=== PATIENT | female | born 1935 | race Caucasian/White ===

== ENCOUNTER 2017-08-08 19:47 | Emergency (ER) | payer MEDICARE ==
[~2017-08-08] VITALS: Ht 162.6 cm; Wt 87.2 kg
[~2017-08-08 19:47] MED LIST: MECL-127 PO; ONDA8TAB9 PO; PANT20TA3; PROC-8; ROSU10TA PO
[2017-08-08 20:12] LABS: CLARITY,URINE CLEAR (Clear); COLOR,URINE STRAW (Yellow); GLUCOSE, URINE NEGATIVE (Neg); KETONES,URINE NEGATIVE (Neg); LEUKOCYTE ESTERASE ,URINE LARGE (Neg); NITRITES, URINE NEGATIVE (Neg); OCCULT BLOOD,URINE LARGE (Neg); PH,URINE 5.5 (4.8-8.0); PROTEIN,URINE NEGATIVE (Neg); UROBILINOGEN,URINE 0.2 E.U/dL (0.2-1.0)
[2017-08-08 20:13] LABS: UA COLLECTION TYPE CLN CATCH MIDSTREAM
[2017-08-08 20:17] LABS: WBC,URINE 30-50 /HPF (0-4)
[2017-08-08 20:18] LABS: BACTERIA,URINE 2+ /HPF (Neg); MUCUS STRANDS NONE SEEN /LPF (Neg); SQUAMOUS EPITHELIAL CELL,UR NONE SEEN /LPF (FEW); TRANSITIONAL EPI CELLS,URINE FEW /HPF
[2017-08-08] MEDS ORDERED: NITR100C6 PO (20:40)
[2017-08-08] MEDS ORDERED: nitrofurantoin macrocrystal 100mg capsule PO ONE (20:40)
[2017-08-08] MEDS ORDERED: phenazopyridine 100mg tablet PO ONE (20:40)
[2017-08-08] MEDS ORDERED: PHEN-824 PO (20:40)
[2017-08-08 21:00] VITALS: BP 133/74
== END 2017-08-08 21:02 | disposition home or self-care (01) ==
LOC: ER 19:48
DX: N39.0 Urinary tract infection, site not specified (principal); R31.9 Hematuria, unspecified; E78.00 Pure hypercholesterolemia, unspecified; K21.9 Gastro-esophageal reflux disease without esophagitis; Z88.0 Allergy status to penicillin; Z88.5 Allergy status to narcotic agent; Z90.49 Acquired absence of other specified parts of digestive tract; Z79.899 Other long term (current) drug therapy
CPT/HCPCS: 81001; 87077; 87088; 87186; 99284

== ENCOUNTER 2017-08-28 01:59 | Emergency (ER) | payer MEDICARE ==
[~2017-08-28] VITALS: Ht 165.1 cm; Wt 85.9 kg
[~2017-08-28 01:59] MED LIST changes: +NITR100C6 PO; +PHEN-824 PO
[2017-08-28 02:05] VITALS: BP 190/80
[2017-08-28] MEDS ORDERED: LORazepam 1 MG tablet PO ONE (02:35)
[2017-08-28 03:17] LABS: CLARITY,URINE CLEAR (Clear); COLOR,URINE YELLOW (Yellow); GLUCOSE, URINE NEGATIVE (Neg); KETONES,URINE NEGATIVE (Neg); LEUKOCYTE ESTERASE ,URINE NEGATIVE (Neg); NITRITES, URINE NEGATIVE (Neg); OCCULT BLOOD,URINE NEGATIVE (Neg); PH,URINE 7.5 (4.8-8.0); PROTEIN,URINE NEGATIVE (Neg); UROBILINOGEN,URINE 0.2 E.U/dL (0.2-1.0)
[2017-08-28 03:20] LABS: UA COLLECTION TYPE NON-SPECIFIED
[2017-08-28] MEDS ORDERED: LORA1TAB PO (03:57)
== END 2017-08-28 04:19 | disposition home or self-care (01) ==
LOC: ER 01:59
DX: F41.9 Anxiety disorder, unspecified (principal); K21.9 Gastro-esophageal reflux disease without esophagitis; E78.00 Pure hypercholesterolemia, unspecified; Z90.49 Acquired absence of other specified parts of digestive tract; Z98.890 Other specified postprocedural states; Z88.0 Allergy status to penicillin; Z88.2 Allergy status to sulfonamides; Z88.5 Allergy status to narcotic agent; Z79.899 Other long term (current) drug therapy
CPT/HCPCS: 81003; 99283

== ENCOUNTER 2017-09-28 19:59 | Inpatient (IN) | payer MEDICARE ==
[~2017-09-28] VITALS: Ht 165.1 cm; Wt 84.1 kg
[~2017-09-28 19:59] MED LIST changes: +LORA1TAB PO
[2017-09-28 20:14] LABS: BASOPHILS % (AUTO) 0.2 % (0-1); EOSINOPHILS # (AUTO) 0.4 X10'3 (0-0.9); EOSINOPHILS % (AUTO) 4.2 % (0-6); HEMATOCRIT 45.3 % (35.0-45.0); HEMOGLOBIN 15.2 g/dl (12.0-16.0); LYMPHOCYTES # (AUTO) 4.2 X10'3 (1.1-4.8); LYMPHOCYTES % (AUTO) 44.1 % (21-51); MEAN CORPUSCULAR HEMOGLOBIN 29.9 PG (27.0-31.0); MEAN CORPUSCULAR HGB CONC 33.7 % (33.0-36.5); MEAN CORPUSCULAR VOLUME 88.8 FL (78-98); MONOCYTES # (AUTO) 0.3 X10'3 (0-0.9); MONOCYTES % (AUTO) 3.4 % (2-12); NEUTROPHILS # (AUTO) 4.6 X10'3 (1.8-7.7); NEUTROPHILS % (AUTO) 48.1 % (42-75); PLATELET COUNT 185 X10'3 (140-440); RED CELL DISTRIBUTION WIDTH 13.1 % (11.5-14.5); WHITE BLOOD COUNT 9.5 X10'3 (4.5-11.0)
[2017-09-28 20:35] LABS: ALANINE AMINOTRANSFERASE 41 U/L (12-78); ALBUMIN 4.1 G/DL (3.4-5.0); ALKALINE PHOSPHATASE 144 IU/L (46-116); ANION GAP 15 (8-16); ASPARTATE AMINO TRANSFERASE 25 U/L (10-37); BILIRUBIN,TOTAL 0.7 MG/DL (0.1-1.0); BLOOD UREA NITROGEN 19 MG/DL (7-18); BUN/CREATININE RATIO 17.1 (6.6-38.0); CALCIUM 10.4 MG/DL (8.5-10.1); CHLORIDE 97 MMOL/L (99-107); CREATININE 1.11 MG/DL (0.40-0.90); GLUCOSE 154 MG/DL (70-104); POTASSIUM 3.6 MMOL/L (3.5-5.1); SODIUM 131 MMOL/L (135-145); TOTAL CARBON DIOXIDE 19.1 MMOL/L (24-32); TOTAL PROTEIN 8.3 G/DL (6.4-8.2); eGFR 47 ML/MIN
[2017-09-28] MEDS ORDERED: morphine 4 MG/ML inj SYRINge IV PRN (20:45)
[2017-09-28] MEDS ORDERED: ondansetron/PF 4mg/2ml inj IV ONE (20:45)
[2017-09-28 20:52] LABS: LIPASE 220 U/L (73-393)
[2017-09-29] MEDS ORDERED: morphine 4 MG/ML inj SYRINge IV PRN (00:05)
[2017-09-29] MEDS ORDERED: bisacodyl 10mg suppository rectal RC PRN (00:05)
[2017-09-29] MEDS ORDERED: magnesium hydroxide 30ml (MOM) UD suspension PO PRN (00:05)
[2017-09-29] MEDS ORDERED: mag hydrox/Alum hydrox/simeth 30ml oral suspension PO PRN (00:05)
[2017-09-29] MEDS ORDERED: acetaminophen 325mg tablet PO PRN (00:05)
[2017-09-29] MEDS ORDERED: acetaminophen 650mg rectal suppository RC PRN (00:05)
[2017-09-29] MEDS ORDERED: HYDROmorphone 1 mg/ml syringe IV ONE (00:15)
[2017-09-29] MEDS: ondansetron/PF 4mg/2ml inj IV PRN (00:19)
[2017-09-29] MEDS: normal saline 1000ml 1,000 ML IV SCH ×3 (00:20→20:02)
[2017-09-29 01:45] VITALS: BP 120/67
[2017-09-29] MEDS ORDERED: pneumococcal 23-VAL P-sac vacc 25 mcg/0.5ml vial IMVAC ONE (04:30)
[2017-09-29 05:00] VITALS: BP 123/50
[2017-09-29] MEDS: HYDROmorphone 1 mg/ml syringe IV PRN ×3 (09:11→22:41)
[2017-09-29 10:00] VITALS: BP 125/43
[2017-09-29] MEDS: diatr meglu/diatrizoate 30ml oral sol.-(3 dose) bottle PO SCH ×3 (13:03→17:40)
[2017-09-29 16:23] LABS: HEMATOCRIT 44.3 % (35.0-45.0); MEAN CORPUSCULAR HEMOGLOBIN 30.1 PG (27.0-31.0); MEAN CORPUSCULAR VOLUME 88.5 FL (78-98); MEAN PLATELET VOLUME 10.1 FL (7.4-10.4); PLATELET COUNT 195 X10'3 (140-440); WHITE BLOOD COUNT 14.2 X10'3 (4.5-11.0)
[2017-09-29] MEDS ORDERED: iohexol 300mg/ml 100ml inj. ONE (17:34)
[2017-09-29 19:00] VITALS: BP 127/67
[2017-09-29 20:14] LABS: HEMATOCRIT 41.7 % (35.0-45.0); HEMOGLOBIN 14.1 g/dl (12.0-16.0); MEAN CORPUSCULAR HEMOGLOBIN 30.1 PG (27.0-31.0); MEAN CORPUSCULAR HGB CONC 33.9 % (33.0-36.5); MEAN CORPUSCULAR VOLUME 88.8 FL (78-98); MEAN PLATELET VOLUME 9.6 FL (7.4-10.4); PLATELET COUNT 186 X10'3 (140-440); RED CELL DISTRIBUTION WIDTH 13.5 % (11.5-14.5); WHITE BLOOD COUNT 14.5 X10'3 (4.5-11.0)
[2017-09-29] MEDS: piperacillin/tazo 3.375gm/50ml 50 ML IV SCH (20:37)
[2017-09-29 22:00] VITALS: BP 140/64
[2017-09-30 00:03] LABS: CLARITY,URINE CLOUDY (Clear); COLOR,URINE YELLOW (Yellow); GLUCOSE, URINE NEGATIVE (Neg); KETONES,URINE TRACE mg/dl (Neg); LEUKOCYTE ESTERASE ,URINE NEGATIVE (Neg); NITRITES, URINE NEGATIVE (Neg); OCCULT BLOOD,URINE NEGATIVE (Neg); PROTEIN,URINE NEGATIVE (Neg); UROBILINOGEN,URINE 0.2 E.U/dL (0.2-1.0)
[2017-09-30 00:12] LABS: UA COLLECTION TYPE STRAIGHT CATH
[2017-09-30 00:13] LABS: BACTERIA,URINE FEW /HPF (Neg); RBC,URINE 0-2 /HPF (0-2); SQUAMOUS EPITHELIAL CELL,UR FEW /LPF (FEW); WBC,URINE 0-4 /HPF (0-4)
[2017-09-30 00:14] LABS: AMORPHOUS URATES 2+; URIC ACID CRYSTALS FEW /HPF (NEGATIVE)
[2017-09-30] MEDS: piperacillin/tazo 3.375gm/50ml 50 ML IV SCH ×2 (02:27→08:18)
[2017-09-30] MEDS: HYDROmorphone 1 mg/ml syringe IV PRN ×3 (04:11→23:10)
[2017-09-30 06:00] VITALS: BP 127/61
[2017-09-30 06:32] LABS: BASOPHILS % (AUTO) 0.2 % (0-1); EOSINOPHILS # (AUTO) 0.1 X10'3 (0-0.9); EOSINOPHILS % (AUTO) 0.8 % (0-6); HEMATOCRIT 41.2 % (35.0-45.0); LYMPHOCYTES # (AUTO) 1.4 X10'3 (1.1-4.8); LYMPHOCYTES % (AUTO) 9.7 % (21-51); MEAN CORPUSCULAR HEMOGLOBIN 30.4 PG (27.0-31.0); MEAN CORPUSCULAR HGB CONC 34.1 % (33.0-36.5); MEAN CORPUSCULAR VOLUME 89.3 FL (78-98); MEAN PLATELET VOLUME 9.8 FL (7.4-10.4); MONOCYTES # (AUTO) 0.8 X10'3 (0-0.9); MONOCYTES % (AUTO) 5.4 % (2-12); NEUTROPHILS # (AUTO) 12.2 X10'3 (1.8-7.7); NEUTROPHILS % (AUTO) 83.9 % (42-75); PLATELET COUNT 175 X10'3 (140-440); RED BLOOD COUNT 4.61 X10'6 (4.20-5.60); RED CELL DISTRIBUTION WIDTH 13.5 % (11.5-14.5); WHITE BLOOD COUNT 14.5 X10'3 (4.5-11.0)
[2017-09-30 06:54] LABS: ANION GAP 7 (8-16); BLOOD UREA NITROGEN 17 MG/DL (7-18); BUN/CREATININE RATIO 23.3 (6.6-38.0); CALCIUM 8.8 MG/DL (8.5-10.1); CHLORIDE 106 MMOL/L (99-107); CREATININE 0.73 MG/DL (0.40-0.90); GLUCOSE 93 MG/DL (70-104); POTASSIUM 3.4 MMOL/L (3.5-5.1); SODIUM 138 MMOL/L (135-145); TOTAL CARBON DIOXIDE 25.3 MMOL/L (24-32); eGFR 77 ML/MIN
[2017-09-30] MEDS: benzocaine/menthol oral lozeng 1 EACH BOX MM PRN ×2 (08:17→11:27)
[2017-09-30] MEDS: normal saline 1000ml 1,000 ML IV SCH ×2 (08:28→21:38)
[2017-09-30 09:22] LABS: HEMOGLOBIN 13.9 g/dl (12.0-16.0); MEAN CORPUSCULAR HEMOGLOBIN 29.9 PG (27.0-31.0); MEAN CORPUSCULAR HGB CONC 33.2 % (33.0-36.5); MEAN CORPUSCULAR VOLUME 90.1 FL (78-98); MEAN PLATELET VOLUME 10.4 FL (7.4-10.4); PLATELET COUNT 155 X10'3 (140-440); RED BLOOD COUNT 4.66 X10'6 (4.20-5.60); RED CELL DISTRIBUTION WIDTH 13.8 % (11.5-14.5)
[2017-09-30 10:00] VITALS: BP 163/85
[2017-09-30 13:32] LABS: C DIFF ANTIGEN NEGATIVE (NEGATIVE); C DIFF SPECIMEN=DIARRHEA? ACCEPTABLE; C DIFFICILE TOXINS A&B NEGATIVE (Neg)
[2017-09-30 15:05] LABS: HEMATOCRIT 40.1 % (35.0-45.0); HEMOGLOBIN 13.5 g/dl (12.0-16.0); MEAN CORPUSCULAR HEMOGLOBIN 30.1 PG (27.0-31.0); MEAN CORPUSCULAR HGB CONC 33.8 % (33.0-36.5); MEAN CORPUSCULAR VOLUME 89.2 FL (78-98); MEAN PLATELET VOLUME 10.4 FL (7.4-10.4); PLATELET COUNT 166 X10'3 (140-440); RED CELL DISTRIBUTION WIDTH 13.8 % (11.5-14.5); WHITE BLOOD COUNT 16.9 X10'3 (4.5-11.0)
[2017-09-30] MEDS: metroNIDAZOLE-Flagyl 500mg/NS 100 ML IV SCH (17:00)
[2017-09-30] MEDS: levoFLOXACIN-Levaquin 500mg/D5 100 ML IV SCH (17:56)
[2017-09-30 18:00] VITALS: BP 132/59
[2017-09-30] MEDS ORDERED: magnesium citrate 296ml oral solution PO STA (20:30)
[2017-09-30] MEDS ORDERED: magnesium citrate 296ml oral solution PO ONE (20:35)
[2017-09-30 20:42] LABS: HEMATOCRIT 39.5 % (35.0-45.0); HEMOGLOBIN 13.4 g/dl (12.0-16.0); MEAN CORPUSCULAR HEMOGLOBIN 30.2 PG (27.0-31.0); MEAN CORPUSCULAR HGB CONC 33.9 % (33.0-36.5); MEAN CORPUSCULAR VOLUME 89.1 FL (78-98); MEAN PLATELET VOLUME 9.8 FL (7.4-10.4); PLATELET COUNT 173 X10'3 (140-440); RED BLOOD COUNT 4.43 X10'6 (4.20-5.60); RED CELL DISTRIBUTION WIDTH 14.2 % (11.5-14.5); WHITE BLOOD COUNT 14.9 X10'3 (4.5-11.0)
[2017-09-30 22:46] VITALS: BP 144/86
[2017-09-30] MEDS: ondansetron/PF 4mg/2ml inj IV PRN (23:10)
[2017-10-01] VITALS (15 sets, daily range): BP systolic 105–154; BP diastolic 48–88
[2017-10-01] MEDS: metroNIDAZOLE-Flagyl 500mg/NS 100 ML IV SCH ×4 (00:36→23:51)
[2017-10-01] MEDS: normal saline 1000ml 1,000 ML IV SCH ×4 (01:42→23:51)
[2017-10-01 02:33] LABS: BASOPHILS % (AUTO) 0.2 % (0-1); EOSINOPHILS # (AUTO) 0.1 X10'3 (0-0.9); EOSINOPHILS % (AUTO) 0.6 % (0-6); HEMATOCRIT 40.1 % (35.0-45.0); HEMOGLOBIN 13.8 g/dl (12.0-16.0); LYMPHOCYTES # (AUTO) 1.5 X10'3 (1.1-4.8); LYMPHOCYTES % (AUTO) 10.1 % (21-51); MEAN CORPUSCULAR HEMOGLOBIN 30.6 PG (27.0-31.0); MEAN CORPUSCULAR HGB CONC 34.4 % (33.0-36.5); MEAN CORPUSCULAR VOLUME 88.9 FL (78-98); MEAN PLATELET VOLUME 10.1 FL (7.4-10.4); MONOCYTES # (AUTO) 0.7 X10'3 (0-0.9); MONOCYTES % (AUTO) 4.3 % (2-12); NEUTROPHILS # (AUTO) 12.9 X10'3 (1.8-7.7); NEUTROPHILS % (AUTO) 84.8 % (42-75); PLATELET COUNT 163 X10'3 (140-440); RED BLOOD COUNT 4.51 X10'6 (4.20-5.60); RED CELL DISTRIBUTION WIDTH 13.1 % (11.5-14.5); WHITE BLOOD COUNT 15.3 X10'3 (4.5-11.0)
[2017-10-01 02:43] LABS: ANION GAP 12 (8-16); BLOOD UREA NITROGEN 10 MG/DL (7-18); BUN/CREATININE RATIO 14.7 (6.6-38.0); CALCIUM 8.9 MG/DL (8.5-10.1); CHLORIDE 103 MMOL/L (99-107); CREATININE 0.68 MG/DL (0.40-0.90); GLUCOSE 105 MG/DL (70-104); POTASSIUM 3.6 MMOL/L (3.5-5.1); SODIUM 137 MMOL/L (135-145); TOTAL CARBON DIOXIDE 21.7 MMOL/L (24-32); eGFR 83 ML/MIN
[2017-10-01] MEDS: HYDROmorphone 1 mg/ml syringe IV PRN (03:18)
[2017-10-01] MEDS ORDERED: magnesium citrate 296ml oral solution PO ONE (05:00)
[2017-10-01] MEDS: bisacodyl 5mg tablet.DR PO SCH ×2 (05:24→09:07)
[2017-10-01] MEDS: levoFLOXACIN-Levaquin 500mg/D5 100 ML IV SCH (09:08)
[2017-10-01 09:10] LABS: HEMATOCRIT 40.9 % (35.0-45.0); MEAN CORPUSCULAR HEMOGLOBIN 30.2 PG (27.0-31.0); MEAN CORPUSCULAR HGB CONC 34.3 % (33.0-36.5); MEAN CORPUSCULAR VOLUME 88.2 FL (78-98); MEAN PLATELET VOLUME 10.2 FL (7.4-10.4); PLATELET COUNT 185 X10'3 (140-440); RED BLOOD COUNT 4.64 X10'6 (4.20-5.60); RED CELL DISTRIBUTION WIDTH 13.5 % (11.5-14.5); WHITE BLOOD COUNT 13.5 X10'3 (4.5-11.0)
[2017-10-01 14:28] LABS: HEMOGLOBIN 13.9 g/dl (12.0-16.0); MEAN CORPUSCULAR HEMOGLOBIN 30.3 PG (27.0-31.0); MEAN CORPUSCULAR HGB CONC 33.9 % (33.0-36.5); MEAN CORPUSCULAR VOLUME 89.3 FL (78-98); MEAN PLATELET VOLUME 9.7 FL (7.4-10.4); PLATELET COUNT 187 X10'3 (140-440); RED BLOOD COUNT 4.59 X10'6 (4.20-5.60); RED CELL DISTRIBUTION WIDTH 13.9 % (11.5-14.5); WHITE BLOOD COUNT 11.9 X10'3 (4.5-11.0)
[2017-10-01] MEDS ORDERED: fentaNYL/PF 50MCG/1 ML 2ML syringe ONE ×2 (15:29→18:12)
[2017-10-01] MEDS ORDERED: MIDAZolam 5mg/5ml vial ONE ×2 (15:30→18:14)
[2017-10-01 20:37] LABS: HEMATOCRIT 39.7 % (35.0-45.0); HEMOGLOBIN 13.5 g/dl (12.0-16.0); MEAN CORPUSCULAR HEMOGLOBIN 30.4 PG (27.0-31.0); MEAN CORPUSCULAR HGB CONC 34.1 % (33.0-36.5); MEAN CORPUSCULAR VOLUME 89.1 FL (78-98); MEAN PLATELET VOLUME 9.9 FL (7.4-10.4); PLATELET COUNT 194 X10'3 (140-440); RED BLOOD COUNT 4.45 X10'6 (4.20-5.60); RED CELL DISTRIBUTION WIDTH 13.7 % (11.5-14.5); WHITE BLOOD COUNT 12.3 X10'3 (4.5-11.0)
[2017-10-02 05:00] VITALS: BP 144/71
[2017-10-02 06:07] LABS: BASOPHILS % (AUTO) 0.5 % (0-1); EOSINOPHILS # (AUTO) 0.3 X10'3 (0-0.9); EOSINOPHILS % (AUTO) 5.2 % (0-6); HEMATOCRIT 35.1 % (35.0-45.0); HEMOGLOBIN 11.7 g/dl (12.0-16.0); LYMPHOCYTES # (AUTO) 1.2 X10'3 (1.1-4.8); LYMPHOCYTES % (AUTO) 17.8 % (21-51); MEAN CORPUSCULAR HEMOGLOBIN 29.9 PG (27.0-31.0); MEAN CORPUSCULAR HGB CONC 33.5 % (33.0-36.5); MEAN CORPUSCULAR VOLUME 89.4 FL (78-98); MEAN PLATELET VOLUME 9.9 FL (7.4-10.4); MONOCYTES # (AUTO) 0.4 X10'3 (0-0.9); NEUTROPHILS # (AUTO) 4.7 X10'3 (1.8-7.7); NEUTROPHILS % (AUTO) 70.5 % (42-75); PLATELET COUNT 154 X10'3 (140-440); RED BLOOD COUNT 3.92 X10'6 (4.20-5.60); RED CELL DISTRIBUTION WIDTH 13.4 % (11.5-14.5); WHITE BLOOD COUNT 6.6 X10'3 (4.5-11.0)
[2017-10-02 06:12] LABS: ALBUMIN 2.4 G/DL (3.4-5.0); ANION GAP 8 (8-16); BLOOD UREA NITROGEN 5 MG/DL (7-18); BUN/CREATININE RATIO 8.6 (6.6-38.0); CALCIUM 8.1 MG/DL (8.5-10.1); CHLORIDE 110 MMOL/L (99-107); CREATININE 0.58 MG/DL (0.40-0.90); GLUCOSE 91 MG/DL (70-104); POTASSIUM 3.6 MMOL/L (3.5-5.1); SODIUM 140 MMOL/L (135-145); TOTAL CARBON DIOXIDE 22.4 MMOL/L (24-32); eGFR > 90 ML/MIN
[2017-10-02] MEDS: metroNIDAZOLE-Flagyl 500mg/NS 100 ML IV SCH ×2 (08:38→16:00)
[2017-10-02 10:00] VITALS: BP 139/75
[2017-10-02] MEDS: levoFLOXACIN-Levaquin 500mg/D5 100 ML IV SCH (10:02)
[2017-10-02] MEDS ORDERED: LEVO500T2 PO (15:50)
[2017-10-02] MEDS ORDERED: METR500T PO (15:50)
== END 2017-10-02 16:21 | disposition home or self-care (01) | DRG 393 ==
LOC: ER 20:00 → ED HOLD 09-29 00:02 → ORTHO 4S 09-29 01:44
PROVIDERS: ADMIT Internal Medicine; ATTEND Family Medicine
PROC: BW211ZZ Computerized Tomography (CT Scan) of Abdomen and Pelvis using Low Osmolar Contrast (ICD-10-PCS; 2017-09-29)
PROC: 0DBM8ZX Excision of Descending Colon, Via Natural or Artificial Opening Endoscopic, Diagnostic (ICD-10-PCS; principal; 2017-10-01)
DX: K55.9 Vascular disorder of intestine, unspecified (principal); N17.0 Acute kidney failure with tubular necrosis; E87.1 Hypo-osmolality and hyponatremia; K92.1 Melena; E86.0 Dehydration; I95.9 Hypotension, unspecified; R42 Dizziness and giddiness; E66.01 Morbid (severe) obesity due to excess calories; K57.30 Diverticulosis of large intestine without perforation or abscess without bleeding; R93.3 Abnormal findings on diagnostic imaging of other parts of digestive tract; E78.00 Pure hypercholesterolemia, unspecified; E78.5 Hyperlipidemia, unspecified; I12.9 Hypertensive chronic kidney disease with stage 1 through stage 4 chronic kidney disease, or unspecified chronic kidney disease; K21.9 Gastro-esophageal reflux disease without esophagitis; N18.9 Chronic kidney disease, unspecified; Z23 Encounter for immunization; Z90.49 Acquired absence of other specified parts of digestive tract; Z90.710 Acquired absence of both cervix and uterus; Z88.5 Allergy status to narcotic agent; Z88.0 Allergy status to penicillin; Z88.2 Allergy status to sulfonamides; Z91.048 Other nonmedicinal substance allergy status; Z79.899 Other long term (current) drug therapy; Z87.891 Personal history of nicotine dependence; Z82.3 Family history of stroke; Z80.9 Family history of malignant neoplasm, unspecified; Z68.30 Body mass index [BMI] 30.0-30.9, adult
CPT/HCPCS: 36415; 45380; 71045; 74176; 74177; 80048; 80053; 81001; 81003; 83690; 85025; 85027; 85610; 86885; 86900; 86901; 86920; 87045; 87046; 87070; 87324; 87449; 90732; 96374; 96375; 99285; A4353; A4620; G0500; J1170; J1956; J2250; J2270; J2405; J2543; J3010; J3490; J7030; Q9963; Q9967

== ENCOUNTER 2019-04-15 13:56 | Emergency (ER) | payer MEDICARE ==
[~2019-04-15] VITALS: Ht 162.6 cm; Wt 83.7 kg
[~2019-04-15 13:56] MED LIST changes: -LORA1TAB PO; -NITR100C6 PO; -PANT20TA3; -PHEN-824 PO; -PROC-8; -ROSU10TA PO; +ROSU10TA2 PO
[2019-04-15 15:12] LABS: CLARITY,URINE CLEAR (Clear); COLOR,URINE YELLOW (Yellow); GLUCOSE, URINE NEGATIVE (Neg); KETONES,URINE NEGATIVE (Neg); LEUKOCYTE ESTERASE ,URINE NEGATIVE (Neg); NITRITES, URINE NEGATIVE (Neg); OCCULT BLOOD,URINE TRACE-INTACT (Neg); PROTEIN,URINE NEGATIVE (Neg); UROBILINOGEN,URINE 0.2 E.U/dL (0.2-1.0)
[2019-04-15 15:13] LABS: UA COLLECTION TYPE CLN CATCH MIDSTREAM
[2019-04-15 15:18] LABS: BACTERIA,URINE FEW /HPF (Neg); RBC,URINE 0-2 /HPF (0-2); SQUAMOUS EPITHELIAL CELL,UR FEW /LPF (FEW); WBC,URINE 0-4 /HPF (0-4)
[2019-04-15] MEDS ORDERED: PHEN-716 PO (15:24)
[2019-04-15] MEDS ORDERED: NITR100C6 PO (15:24)
[2019-04-15 15:31] VITALS: BP 138/92
[2019-04-16] MEDS ORDERED: HYDR-3965 PO (15:08)
== END 2019-04-15 15:37 | disposition home or self-care (01) ==
LOC: ER 13:56
DX: N30.00 Acute cystitis without hematuria (principal); E78.00 Pure hypercholesterolemia, unspecified; K21.9 Gastro-esophageal reflux disease without esophagitis; Z90.49 Acquired absence of other specified parts of digestive tract; Z98.890 Other specified postprocedural states; Z88.2 Allergy status to sulfonamides; Z88.0 Allergy status to penicillin; Z88.1 Allergy status to other antibiotic agents; Z88.5 Allergy status to narcotic agent; Z91.048 Other nonmedicinal substance allergy status; Z79.899 Other long term (current) drug therapy
CPT/HCPCS: 81001; 99283

== ENCOUNTER 2019-04-16 10:15 | Emergency (ER) | payer MEDICARE ==
[~2019-04-16] VITALS: Ht 162.6 cm; Wt 84.0 kg
[~2019-04-16 10:15] MED LIST changes: +NITR100C6 PO; +PHEN-716 PO
[2019-04-16 12:39] LABS: BASOPHILS % (AUTO) 0.5 % (0-1); EOSINOPHILS # (AUTO) 0.1 X10'3 (0-0.9); EOSINOPHILS % (AUTO) 1.6 % (0-6); HEMATOCRIT 42.1 % (35.0-45.0); HEMOGLOBIN 14.4 g/dl (12.0-16.0); LYMPHOCYTES # (AUTO) 1.4 X10'3 (1.1-4.8); LYMPHOCYTES % (AUTO) 20.1 % (21-51); MEAN CORPUSCULAR HEMOGLOBIN 30.1 PG (27.0-31.0); MEAN CORPUSCULAR HGB CONC 34.1 g/dL (33.0-36.5); MEAN CORPUSCULAR VOLUME 88.2 FL (78-98); MEAN PLATELET VOLUME 8.7 FL (7.4-10.4); MONOCYTES # (AUTO) 0.4 X10'3 (0-0.9); MONOCYTES % (AUTO) 5.6 % (2-12); NEUTROPHILS # (AUTO) 5.1 X10'3 (1.8-7.7); NEUTROPHILS % (AUTO) 72.2 % (42-75); PLATELET COUNT 205 X10'3 (140-440); RED BLOOD COUNT 4.77 X10'6 (4.20-5.60); RED CELL DISTRIBUTION WIDTH 12.9 % (11.5-14.5)
[2019-04-16 12:51] LABS: ALANINE AMINOTRANSFERASE 29 U/L (12-78); ALBUMIN 3.8 G/DL (3.4-5.0); ALKALINE PHOSPHATASE 145 IU/L (46-116); ANION GAP 10 (8-16); ASPARTATE AMINO TRANSFERASE 22 U/L (10-37); BILIRUBIN,TOTAL 0.7 MG/DL (0.1-1.0); BLOOD UREA NITROGEN 8 MG/DL (7-18); BUN/CREATININE RATIO 12.3 (6.6-38.0); CALCIUM 9.3 MG/DL (8.5-10.1); CHLORIDE 100 MMOL/L (99-107); CREATININE 0.65 MG/DL (0.40-0.90); GLUCOSE 101 MG/DL (70-104); LIPASE 115 U/L (73-393); SODIUM 134 MMOL/L (135-145); TOTAL CARBON DIOXIDE 24.4 MMOL/L (24-32); TOTAL PROTEIN 7.6 G/DL (6.4-8.2); eGFR 87 ML/MIN
[2019-04-16] MEDS ORDERED: LIDOcaine Viscous 15ml cup MM STA (13:22)
[2019-04-16] MEDS ORDERED: mag hydrox/Alum hydrox/simeth 30ml oral suspension PO ONE (13:25)
[2019-04-16] MEDS ORDERED: famotidine 20mg tablet PO ONE (13:25)
[2019-04-16] MEDS ORDERED: iohexol 300mg/ml 100ml inj. ONE (13:27)
[2019-04-16] MEDS ORDERED: iohexol 350MG/ML 100ml bottle IV ONE (13:36)
[2019-04-16] MEDS ORDERED: HYDR-3965 PO (15:08)
[2019-04-16 15:18] VITALS: BP 155/97
== END 2019-04-16 15:22 | disposition home or self-care (01) ==
LOC: ER 10:15
DX: K46.9 Unspecified abdominal hernia without obstruction or gangrene (principal); E78.00 Pure hypercholesterolemia, unspecified; K21.9 Gastro-esophageal reflux disease without esophagitis; Z90.49 Acquired absence of other specified parts of digestive tract; Z98.890 Other specified postprocedural states; Z88.2 Allergy status to sulfonamides; Z88.0 Allergy status to penicillin; Z88.5 Allergy status to narcotic agent; Z88.1 Allergy status to other antibiotic agents; Z91.048 Other nonmedicinal substance allergy status; Z79.899 Other long term (current) drug therapy
CPT/HCPCS: 36415; 74176; 80053; 83605; 83690; 85025; 99284; Q9967

== ENCOUNTER 2019-11-22 07:53 | Emergency (ER) | payer MEDICARE ==
[~2019-11-22] VITALS: Ht 165.1 cm; Wt 81.8 kg
[2019-11-22] MEDS ORDERED: oxymetazoline 15 ML nasal spray NS ONE (08:10)
--- NOTE | 2019-11-22 10:16 | NUR ---
discussep pt's nausea w/ edmd manjarrez; new order zofran odt 4mg received.
[2019-11-22] MEDS ORDERED: ondansetron 4mg rapidly disintigrating tab PO ONE (10:20)
[2019-11-22] MEDS ORDERED: LIDOcaine 1% W/epiNEPHrine 1:200,000 10ml vial IJ ONE (10:55)
[2019-11-22] MEDS ORDERED: silver nitrate applicator stick TP ONE (11:05)
--- NOTE | 2019-11-22 11:13 | NUR ---
Provider in room evaluating patient. Medications administered by MD. Cauterized left nostril.
--- NOTE | 2019-11-22 11:22 | NUR ---
Pt left nostril packed with petrolatum gauze by Dr Watkins.
[2019-11-22 11:47] VITALS: BP 137/69
== END 2019-11-22 11:50 | disposition home or self-care (01) ==
LOC: ER 07:55
DX: R04.0 Epistaxis (principal); E78.00 Pure hypercholesterolemia, unspecified; K21.9 Gastro-esophageal reflux disease without esophagitis; Z90.49 Acquired absence of other specified parts of digestive tract; Z98.890 Other specified postprocedural states; Z72.89 Other problems related to lifestyle; Z88.0 Allergy status to penicillin; Z88.2 Allergy status to sulfonamides; Z88.5 Allergy status to narcotic agent; Z88.8 Allergy status to other drugs, medicaments and biological substances; Z79.899 Other long term (current) drug therapy
CPT/HCPCS: 30901; 99284

== ENCOUNTER 2020-10-20 14:30 | Outpatient (CLI) | payer MEDICARE ==
[~2020-10-20] VITALS: Ht 162.6 cm; Wt 79.4 kg
[2020-10-20 13:26] LABS: BASOPHILS # (AUTO) 0.1 X10'3 (0-0.2); BASOPHILS % (AUTO) 0.7 % (0-1); EOSINOPHILS # (AUTO) 0.3 X10'3 (0-0.9); EOSINOPHILS % (AUTO) 3.3 % (0-6); LYMPHOCYTES # (AUTO) 1.6 X10'3 (1.1-4.8); LYMPHOCYTES % (AUTO) 19.1 % (21-51); MEAN CORPUSCULAR HEMOGLOBIN 30.6 PG (27.0-31.0); MEAN CORPUSCULAR HGB CONC 33.8 g/dL (33.0-36.5); MEAN CORPUSCULAR VOLUME 90.6 FL (78-98); MEAN PLATELET VOLUME 8.7 FL (7.4-10.4); MONOCYTES # (AUTO) 0.5 X10'3 (0-0.9); MONOCYTES % (AUTO) 6.1 % (2-12); NEUTROPHILS # (AUTO) 5.9 X10'3 (1.8-7.7); NEUTROPHILS % (AUTO) 70.8 % (42-75); PRE OP HEMATOCRIT 41.7 % (35.0-45.0); PRE OP HEMOGLOBIN 14.1 g/dL (12.0-16.0); PRE OP PLATELET COUNT 254 X10'3 (140-440); RED CELL DISTRIBUTION WIDTH 13.4 % (11.5-14.5)
[2020-10-20 13:43] LABS: ALBUMIN/GLOBULIN RATIO 1.1 (1.1-1.5); ALKALINE PHOSPHATASE 126 IU/L (46-116); BLOOD UREA NITROGEN 12 MG/DL (7-18); BUN/CREATININE RATIO 17.9 (6.6-38.0); CALCIUM 9.2 MG/DL (8.5-10.1); CHLORIDE 104 MMOL/L (99-107); CREATININE 0.67 MG/DL (0.40-0.90); PRE OP ALT 21 U/L (30-65); PRE OP ANION GAP 9 (8-16); PRE OP AST 16 U/L (10-37); PRE OP BILIRUB, TOTAL 0.5 MG/DL (0.0-1.0); PRE OP GLUCOSE 95 MG/DL (70-104); PRE OP POTASSIUM 4.2 MMOL/L (3.4-5.1); PRE OP SODIUM 139 MMOL/L (135-145); TOTAL CARBON DIOXIDE 26.5 MMOL/L (24-32); TOTAL PROTEIN 7.7 G/DL (6.4-8.2); eGFR 84 ML/MIN
[~2020-10-20 14:30] MED LIST changes: +LISI20TA28 PO; +MELO-100 PO
[2020-10-23] MEDS ORDERED: iohexol 300mg/ml 100ml inj. ONE (18:28)
[2020-10-24] MEDS ORDERED: CEFP100S9 PO (12:45)
[2020-10-24] MEDS ORDERED: METR-159 PO (12:45)
[2020-10-25] MEDS ORDERED: ringers solution, lacted 1,000 ML IV SCH (05:00)
[2020-10-25] MEDS ORDERED: cefazolin/dext.iso 2gm/100ml IV ONE (05:30)
[2020-10-25] MEDS ORDERED: acetaminophen 325mg tablet PO ONE (05:30)
[2020-10-25] MEDS ORDERED: vancomycin 1,500 MG in NS 300ml IV soln IV ONE (05:30)
[2020-10-25] MEDS ORDERED: famotidine 20mg tablet PO ONE (05:30)
[2020-10-25] MEDS ORDERED: celeCOXIB 100mg capsule PO ONE (05:30)
[2020-10-25] MEDS ORDERED: metoclopramide 5 mg/ml inj IV ONE (05:30)
[2020-10-25] MEDS ORDERED: tranexamic acid inj. 800 MG in normal saline 100ml IV soln 92 ML IV ONE (05:30)
[2020-10-25] MEDS ORDERED: oxyCODONE SR 10mg (sust. release) tab -2 tabs (20mg) PO ONE (05:30)
[2020-10-25] MEDS ORDERED: gabapentin 300mg capsule PO ONE (05:30)
== END 2020-10-20 23:59 | disposition home or self-care (01) ==
LOC: PRE-OP 14:30 → EDSTATUS 10-25 13:30
PROVIDERS: ATTEND Orthopaedic Surgery
DX: Z01.812 Encounter for preprocedural laboratory examination (principal); M16.11 Unilateral primary osteoarthritis, right hip; Z20.822 Contact with and (suspected) exposure to COVID-19
CPT/HCPCS: 36415; 80053; 85025; 86885; 86900; 86901; 87081; U0003; U0005; J3370; J7040; J7120; Q9967

== ENCOUNTER 2020-10-23 11:29 | Emergency (ER) | payer MEDICARE ==
[~2020-10-23] VITALS: Ht 162.6 cm; Wt 77.3 kg
[~2020-10-23 11:29] MED LIST changes: -MECL-127 PO; -NITR100C6 PO; -ONDA8TAB9 PO; -PHEN-716 PO
[2020-10-23 17:41] LABS: CLARITY,URINE CLEAR (Clear); COLOR,URINE YELLOW (Yellow); GLUCOSE, URINE NEGATIVE (Neg); KETONES,URINE TRACE mg/dl (Neg); LEUKOCYTE ESTERASE ,URINE TRACE (Neg); NITRITES, URINE NEGATIVE (Neg); OCCULT BLOOD,URINE TRACE-LYSED (Neg); PROTEIN,URINE NEGATIVE (Neg); UA COLLECTION TYPE CLN CATCH MIDSTREAM; UROBILINOGEN,URINE 0.2 E.U/dL (0.2-1.0)
[2020-10-23 17:47] LABS: SQUAMOUS EPITHELIAL CELL,UR FEW /LPF (FEW)
[2020-10-23 17:48] LABS: BACTERIA,URINE NONE SEEN /HPF (Neg); RBC,URINE NONE SEEN /HPF (0-2); WBC,URINE 0-4 /HPF (0-4)
[2020-10-23] MEDS ORDERED: normal saline 1000ML IV soln IVB ONE (18:10)
[2020-10-23 18:18] LABS: BASOPHILS % (AUTO) 0.3 % (0-1); EOSINOPHILS % (AUTO) 0.3 % (0-6); HEMATOCRIT 41.1 % (35.0-45.0); HEMOGLOBIN 13.9 g/dl (12.0-16.0); LYMPHOCYTES # (AUTO) 1.4 X10'3 (1.1-4.8); LYMPHOCYTES % (AUTO) 10.5 % (21-51); MEAN CORPUSCULAR HEMOGLOBIN 30.5 PG (27.0-31.0); MEAN CORPUSCULAR HGB CONC 33.8 g/dL (33.0-36.5); MEAN CORPUSCULAR VOLUME 90.2 FL (78-98); MEAN PLATELET VOLUME 9.5 FL (7.4-10.4); MONOCYTES # (AUTO) 0.9 X10'3 (0-0.9); MONOCYTES % (AUTO) 6.6 % (2-12); NEUTROPHILS # (AUTO) 11.3 X10'3 (1.8-7.7); NEUTROPHILS % (AUTO) 82.3 % (42-75); PLATELET COUNT 241 X10'3 (140-440); RED BLOOD COUNT 4.56 X10'6 (4.20-5.60); RED CELL DISTRIBUTION WIDTH 13.2 % (11.5-14.5); WHITE BLOOD COUNT 13.7 X10'3 (4.5-11.0)
[2020-10-23 18:23] LABS: ALANINE AMINOTRANSFERASE 17 U/L (12-78); ALBUMIN 3.9 G/DL (3.4-5.0); ALKALINE PHOSPHATASE 124 IU/L (46-116); ANION GAP 10 (8-16); ASPARTATE AMINO TRANSFERASE 13 U/L (10-37); BILIRUBIN,TOTAL 1.1 MG/DL (0.1-1.0); BLOOD UREA NITROGEN 9 MG/DL (7-18); BUN/CREATININE RATIO 11.5 (6.6-38.0); CALCIUM 8.9 MG/DL (8.5-10.1); CHLORIDE 95 MMOL/L (99-107); CREATININE 0.78 MG/DL (0.40-0.90); GLUCOSE 103 MG/DL (70-104); POTASSIUM 3.6 MMOL/L (3.5-5.1); SODIUM 130 MMOL/L (135-145); TOTAL CARBON DIOXIDE 24.9 MMOL/L (24-32); TOTAL PROTEIN 7.9 G/DL (6.4-8.2); eGFR 70 ML/MIN
--- NOTE | 2020-10-23 18:31 | NUR ---
PT IN BED. A&OX4.
[2020-10-23] MEDS ORDERED: iohexol 300mg/ml 100ml inj. ONE (19:00)
[2020-10-23] MEDS ORDERED: METR500T PO (20:40)
[2020-10-23] MEDS ORDERED: CEFP100T7 PO (20:40)
[2020-10-23 20:52] VITALS: BP 150/68
[2020-10-24] MEDS ORDERED: METR-159 PO (12:45)
[2020-10-24] MEDS ORDERED: CEFP100S9 PO (12:45)
== END 2020-10-23 20:52 | disposition home or self-care (01) ==
LOC: ER 11:29
DX: K57.32 Diverticulitis of large intestine without perforation or abscess without bleeding (principal); E78.00 Pure hypercholesterolemia, unspecified; K21.9 Gastro-esophageal reflux disease without esophagitis; Z87.440 Personal history of urinary (tract) infections; Z85.9 Personal history of malignant neoplasm, unspecified; Z87.19 Personal history of other diseases of the digestive system; Z79.899 Other long term (current) drug therapy; Z88.0 Allergy status to penicillin; Z91.048 Other nonmedicinal substance allergy status; Z88.2 Allergy status to sulfonamides
CPT/HCPCS: 36415; 74177; 80053; 81001; 85025; 87088; 96360; 99285; J7030; Q9967

== ENCOUNTER 2021-01-30 06:02 | Inpatient (IN) | payer MEDICARE ==
[2021-01-24 16:59] LABS: BASOPHILS # (AUTO) 0.1 X10'3 (0-0.2); BASOPHILS % (AUTO) 0.8 % (0-1); EOSINOPHILS # (AUTO) 0.4 X10'3 (0-0.9); EOSINOPHILS % (AUTO) 5.4 % (0-6); LYMPHOCYTES # (AUTO) 1.5 X10'3 (1.1-4.8); MEAN CORPUSCULAR HEMOGLOBIN 30.7 PG (27.0-31.0); MEAN CORPUSCULAR HGB CONC 34.5 g/dL (33.0-36.5); MEAN PLATELET VOLUME 8.9 FL (7.4-10.4); MONOCYTES # (AUTO) 0.4 X10'3 (0-0.9); MONOCYTES % (AUTO) 6.1 % (2-12); NEUTROPHILS # (AUTO) 4.8 X10'3 (1.8-7.7); NEUTROPHILS % (AUTO) 66.7 % (42-75); PRE OP HEMOGLOBIN 14.8 g/dL (12.0-16.0); PRE OP PLATELET COUNT 278 X10'3 (140-440); RED BLOOD COUNT 4.83 X10'6 (4.20-5.60); RED CELL DISTRIBUTION WIDTH 13.6 % (11.5-14.5)
[2021-01-24 17:05] LABS: PRE OP PROTIME 10.2 SECONDS (9.0-12.0)
[2021-01-24 17:10] LABS: ALBUMIN 3.9 G/DL (3.4-5.0); ALBUMIN/GLOBULIN RATIO 0.9 (1.1-1.5); ALKALINE PHOSPHATASE 135 IU/L (46-116); BLOOD UREA NITROGEN 8 MG/DL (7-18); BUN/CREATININE RATIO 11.1 (6.6-38.0); CALCIUM 9.4 MG/DL (8.5-10.1); CHLORIDE 100 MMOL/L (99-107); CREATININE 0.72 MG/DL (0.40-0.90); PRE OP ALT 27 U/L (30-65); PRE OP ANION GAP 10 (8-16); PRE OP AST 21 U/L (10-37); PRE OP BILIRUB, TOTAL 0.6 MG/DL (0.0-1.0); PRE OP GLUCOSE 89 MG/DL (70-104); PRE OP POTASSIUM 4.1 MMOL/L (3.4-5.1); PRE OP SODIUM 135 MMOL/L (135-145); TOTAL CARBON DIOXIDE 24.8 MMOL/L (24-32); TOTAL PROTEIN 8.2 G/DL (6.4-8.2); eGFR 77 ML/MIN
[~2021-01-30] VITALS: Ht 162.6 cm; Wt 76.0 kg
[2021-01-30] VITALS (19 sets, daily range): BP systolic 90–128; BP diastolic 45–89
[~2021-01-30 06:02] MED LIST changes: -MELO-100 PO; +acetaminophen 325mg tablet PO ONE; +cefazolin/dext.iso 2gm/50ml IV ONE; +celeCOXIB 100mg capsule PO ONE; +famotidine 20mg tablet PO ONE; +gabapentin 300mg capsule PO ONE; +metoclopramide 5 mg/ml inj IV ONE; +oxyCODONE SR 10mg (sust. release) tab -2 tabs (20mg) PO ONE; +ringers solution, lacted 1,000 ML IV SCH; +tranexamic acid inj. 1,000 MG in 0.7% saline 100 ML PMX IV ONE; +vancomycin 1,500 MG in NS 300ml IV soln IV ONE
[2021-01-30] MEDS ORDERED: acetaminophen 325mg tablet PO PRN (06:50)
[2021-01-30] MEDS ORDERED: bisacodyl 10mg suppository rectal RC PRN (06:50)
[2021-01-30] MEDS ORDERED: HYDROmorphone inj. 0.5 MG/0.5 ML DISP.SYRIN IV PRN (06:50)
[2021-01-30] MEDS ORDERED: ondansetron/PF 4mg/2ml inj IV PRN ×2 (06:50→09:25)
[2021-01-30] MEDS ORDERED: magnesium hydroxide 30ml (MOM) UD suspension PO PRN (06:50)
[2021-01-30] MEDS ORDERED: diphenhydrAMINE 25mg capsule PO PRN ×2 (06:50)
[2021-01-30] MEDS ORDERED: vancomycin/NS 1 GM ADD-VANTAGE 250 ML IV SCH ×2 (08:00→20:00)
[2021-01-30] MEDS ORDERED: cloNIDine hcl/PF 100mcg/ml inj ONE (08:15)
[2021-01-30] MEDS ORDERED: ketorolac trometh. 30mg/ml inj. ONE (08:15)
[2021-01-30] MEDS ORDERED: epiNEPHrine 1 mg/ml inj ONE (08:15)
[2021-01-30] MEDS ORDERED: vancomycin 1,000mg inj ONE (08:15)
[2021-01-30] MEDS ORDERED: ROPIVAcaine 0.5% (5mg/ml) 30ml vial ONE (08:16)
[2021-01-30] MEDS ORDERED: MIDAZolam 1 MG/ML 5ML VIAL ONE (08:27)
[2021-01-30] MEDS ORDERED: fentaNYL/PF 50MCG/1 ML 2ML syringe ONE (08:27)
[2021-01-30] MEDS ORDERED: morphine 4 MG/ML inj SYRINge IV PRN (09:25)
[2021-01-30] MEDS ORDERED: meperidine/PF 25mg/ml syringe IV PRN ×3 (09:25)
[2021-01-30] MEDS ORDERED: ringers solution, lacted 1,000 ML IV SCH (09:25)
[2021-01-30] MEDS ORDERED: proCHLORperazine 10 MG/2 ml inj IV PRN (09:25)
[2021-01-30] MEDS ORDERED: morphine 2 MG/ML inj. syringe IV PRN (09:25)
[2021-01-30] MEDS ORDERED: ePHEDrine 50MG/ML INJ. ONE (09:29)
--- NOTE | 2021-01-30 09:45 | NUR ---
Received from OR via BED, accompanied by Anesthesiologist KALE and report given by Anesthesiolgist. MISTY DSG CDI, VSS, IV PATENT. FEET WARM, BRACE IN PLACE TO RT KNEE. NO PAIN.
--- NOTE | 2021-01-30 09:45 | NUR ---
FROM OR ON BED, KALE MURILLO AT SIDE. VSS, IV PATENT, NO PAIN RT HIP DRESSING WITH MISTY, CDI. KNEE BRACE PRESENT.PPP, SKIN WARM.
--- NOTE | 2021-01-30 11:05 | NUR ---
TO ROOM ON BED, VSS, IV PATENT, DSG CDI, NO PAIN REPORT TO RN.TRANSFERRED WITHOUT INCIDENT.
[2021-01-30] MEDS ORDERED: tranexamic acid 1gm/0.7% sal. 100 ML IV ONE (13:00)
[2021-01-30] MEDS: HYDROcodone/acetaminophen 10/325mg tab PO PRN ×2 (14:49→19:11)
[2021-01-30] MEDS: potassium cl 20mEq in 1/2 NS 1,000 ML IV SCH ×2 (14:50→16:25)
[2021-01-30] MEDS: cefazolin/dext.iso 2gm/50ml 50 ML IV SCH (16:25)
[2021-01-30] MEDS: multivitamins, therapeutics tablet PO SCH (16:26)
[2021-01-30] MEDS: aspirin 325mg tablet PO SCH (16:26)
[2021-01-30] MEDS: lisinopril 20mg tablet PO SCH (16:28)
[2021-01-30] MEDS: atorvastatin 20mg tablet PO SCH (16:28)
--- NOTE | 2021-01-30 18:23 | NUR ---
Report given to Robert KHAN
[2021-01-30] MEDS: ascorbic acid 500mg tablet PO SCH (19:49)
[2021-01-30] MEDS: HYDROmorphone 1 mg/ml syringe IV PRN (20:50)
[2021-01-30] MEDS: sennosides 8.6mg tablet PO SCH (21:00)
[2021-01-30] MEDS: gabapentin 300mg capsule PO SCH (21:30)
[2021-01-31] VITALS (18 sets, daily range): BP systolic 110–147; BP diastolic 45–89
[2021-01-31] MEDS: cefazolin/dext.iso 2gm/50ml 50 ML IV SCH (00:19)
[2021-01-31] MEDS: potassium cl 20mEq in 1/2 NS 1,000 ML IV SCH ×4 (00:19→21:13)
--- NOTE | 2021-01-31 06:19 | NUR ---
Patient in room [facility]. I have received report from Robert KHAN and had the opportunity to ask questions and assume patient care.
--- NOTE | 2021-01-31 06:30 | NUR ---
Problems reprioritized. Patient report given, questions answered & plan of care reviewed with Joy. Addendum: 01/31/21 at 0658 by Alin Salmon RN Amended: Links added.
[2021-01-31 06:36] LABS: BASOPHILS % (AUTO) 0.4 % (0-1); EOSINOPHILS # (AUTO) 0.2 X10'3 (0-0.9); EOSINOPHILS % (AUTO) 2.9 % (0-6); HEMOGLOBIN 12.5 g/dl (12.0-16.0); LYMPHOCYTES # (AUTO) 0.7 X10'3 (1.1-4.8); LYMPHOCYTES % (AUTO) 9.9 % (21-51); MEAN CORPUSCULAR HEMOGLOBIN 30.6 PG (27.0-31.0); MEAN CORPUSCULAR HGB CONC 33.8 g/dL (33.0-36.5); MEAN CORPUSCULAR VOLUME 90.5 FL (78-98); MEAN PLATELET VOLUME 8.9 FL (7.4-10.4); MONOCYTES # (AUTO) 0.5 X10'3 (0-0.9); MONOCYTES % (AUTO) 6.5 % (2-12); NEUTROPHILS % (AUTO) 80.3 % (42-75); PLATELET COUNT 182 X10'3 (140-440); RED BLOOD COUNT 4.09 X10'6 (4.20-5.60); RED CELL DISTRIBUTION WIDTH 13.5 % (11.5-14.5); WHITE BLOOD COUNT 7.5 X10'3 (4.5-11.0)
[2021-01-31 06:57] LABS: ANION GAP 7 (8-16); CHLORIDE 105 MMOL/L (99-107); POTASSIUM 4.4 MMOL/L (3.5-5.1); SODIUM 135 MMOL/L (135-145); TOTAL CARBON DIOXIDE 22.8 MMOL/L (24-32)
[2021-01-31] MEDS: lisinopril 20mg tablet PO SCH (07:41)
[2021-01-31] MEDS: ascorbic acid 500mg tablet PO SCH ×2 (07:41→19:10)
[2021-01-31] MEDS: atorvastatin 20mg tablet PO SCH (07:41)
[2021-01-31] MEDS: gabapentin 300mg capsule PO SCH ×3 (07:41→21:12)
[2021-01-31] MEDS: multivitamins, therapeutics tablet PO SCH (07:41)
[2021-01-31] MEDS: aspirin 325mg tablet PO SCH (07:42)
[2021-01-31 07:53] LABS: PRE OP PROTIME 10.7 SECONDS (9.0-12.0)
[2021-01-31] MEDS: HYDROmorphone 1 mg/ml syringe IV PRN ×3 (09:47→21:09)
--- NOTE | 2021-01-31 11:02 | NUR ---
Patient off the unit to OR
[2021-01-31] MEDS ORDERED: cloNIDine hcl/PF 100mcg/ml inj ONE (11:06)
[2021-01-31] MEDS ORDERED: epiNEPHrine 1 mg/ml inj ONE (11:06)
[2021-01-31] MEDS ORDERED: ROPIVAcaine 0.5% (5mg/ml) 30ml vial ONE ×2 (11:06→11:55)
[2021-01-31] MEDS ORDERED: ketorolac trometh. 30mg/ml inj. ONE (11:06)
[2021-01-31] MEDS ORDERED: tranexamic acid 100mg/ml inj. ONE (11:06)
[2021-01-31] MEDS ORDERED: vancomycin 1,000mg inj ONE ×2 (11:06→11:51)
[2021-01-31] MEDS ORDERED: fentaNYL/PF 50MCG/1 ML 2ML syringe ONE (11:17)
[2021-01-31] MEDS ORDERED: midazolam 1 mg/ML 2ml injection ONE (11:18)
[2021-01-31] MEDS ORDERED: propofol inj 20 ML IV ONE (11:50)
[2021-01-31] MEDS ORDERED: ceFAZolin 1000mg inj ONE ×2 (11:51)
[2021-01-31] MEDS ORDERED: albumin (Human) 5% 250ml 250 ML IV ONE ×2 (13:08)
--- NOTE | 2021-01-31 13:31 | NUR ---
Received from OR via ORTHO BED , accompanied by Anesthesiologist DR. HENLEY and report given by Anesthesiolgist. PT AROUSABLE, COMFORTABLE, DENIES PAIN AND NAUSEA. KNEE IMMOBILIZER TO RIGHT LEG IN PLACE. STRONG PALPABLE PEDAL PULSE TO RIGHT FOOT. F/C TO GRAVITY W/ CLEAR YELLOW URINE. IV PATENT TO RIGHT A/C 20 G. DRSG TO RIGHT HIP CDI.
[2021-01-31] MEDS ORDERED: proCHLORperazine 10 MG/2 ml inj IV PRN (14:15)
[2021-01-31] MEDS ORDERED: ondansetron/PF 4mg/2ml inj IV PRN (14:15)
[2021-01-31] MEDS ORDERED: meperidine/PF 25mg/ml syringe IV PRN ×3 (14:15)
[2021-01-31] MEDS ORDERED: morphine 2 MG/ML inj. syringe IV PRN (14:15)
[2021-01-31] MEDS ORDERED: morphine 4 MG/ML inj SYRINge IV PRN (14:15)
[2021-01-31] MEDS ORDERED: ringers solution, lacted 1,000 ML IV SCH (14:15)
--- NOTE | 2021-01-31 14:21 | NUR ---
PT TO ROOM 358 A VIA ORTHO BED. REPORT GIVEN TO AISHA KHAN ON SURGICAL. PT ALERT AND ORIENTED, PLEASANT AND VERY THANKFUL FOR HER CARE. ABLE TO MOVE FEET SLIGHTLY. SPINAL LEVEL AT MID THIGH. PT DENIES PAIN AND NAUSEA. DRSG REMAINS CDI. POWDER PACK IN PLACE. PT STATES READINESS FOR TRANSFER BACK TO SURGICAL. DENTURES IN. GLASSES IN PT CHART. NO OTHER PT BELONGINGS.
--- NOTE | 2021-01-31 14:59 | NUR ---
PAGER ID: [phone] MESSAGE: [phone]. Patient would like to try a clear diet for now. Is that ok? And we will have pt NPO after midnight
--- NOTE | 2021-01-31 15:05 | NUR ---
Primary Joint consult: Pt s/p arthroplasty of R hip 01/29. Provided pt w/ written and verbal high protein diet ed w/ RD contact info. Addendum: 01/31/21 at [address] Amended: Links added.
--- NOTE | 2021-01-31 18:39 | NUR ---
Patient in room [facility]. I have received report from Joy KHAN and Michelle KHAN and had the opportunity to ask questions and assume patient care.
[2021-01-31] MEDS: celeCOXIB 100mg capsule PO SCH (19:11)
[2021-01-31] MEDS: HYDROcodone/acetaminophen 10/325mg tab PO PRN (19:14)
[2021-01-31] MEDS: sennosides 8.6mg tablet PO SCH (21:12)
[2021-02-01] VITALS: BP 107/56
[2021-02-01 04:30] VITALS: BP 103/41
[2021-02-01] MEDS: potassium cl 20mEq in 1/2 NS 1,000 ML IV SCH (04:30)
[2021-02-01] MEDS: HYDROcodone/acetaminophen 10/325mg tab PO PRN ×3 (04:42→20:46)
[2021-02-01 06:16] LABS: BASOPHILS % (AUTO) 0.4 % (0-1); EOSINOPHILS # (AUTO) 0.4 X10'3 (0-0.9); EOSINOPHILS % (AUTO) 4.5 % (0-6); HEMATOCRIT 28.9 % (35.0-45.0); HEMOGLOBIN 10.1 g/dl (12.0-16.0); LYMPHOCYTES # (AUTO) 0.8 X10'3 (1.1-4.8); LYMPHOCYTES % (AUTO) 8.9 % (21-51); MEAN CORPUSCULAR HGB CONC 35.1 g/dL (33.0-36.5); MEAN CORPUSCULAR VOLUME 88.4 FL (78-98); MEAN PLATELET VOLUME 8.4 FL (7.4-10.4); MONOCYTES # (AUTO) 0.8 X10'3 (0-0.9); MONOCYTES % (AUTO) 8.9 % (2-12); NEUTROPHILS # (AUTO) 6.7 X10'3 (1.8-7.7); NEUTROPHILS % (AUTO) 77.3 % (42-75); PLATELET COUNT 151 X10'3 (140-440); RED BLOOD COUNT 3.27 X10'6 (4.20-5.60); RED CELL DISTRIBUTION WIDTH 13.2 % (11.5-14.5); WHITE BLOOD COUNT 8.6 X10'3 (4.5-11.0)
--- NOTE | 2021-02-01 06:35 | NUR ---
Problems reprioritized. Patient report given, questions answered & plan of care reviewed with Patrice KHAN.
--- NOTE | 2021-02-01 06:36 | NUR ---
Patient in room [facility]. I have received report from Jackie mooney and had the opportunity to ask questions and assume patient care.
[2021-02-01 07:00] VITALS: BP 105/44
[2021-02-01] MEDS ORDERED: VANCOMYCIN 1,500MG inj. 1,500 MG in normal saline 500ml IV soln 300 ML IV SCH (08:00)
[2021-02-01] MEDS: celeCOXIB 100mg capsule PO SCH ×2 (09:59→20:20)
[2021-02-01] MEDS: lisinopril 20mg tablet PO SCH (09:59)
[2021-02-01] MEDS: gabapentin 300mg capsule PO SCH ×3 (10:00→20:19)
[2021-02-01] MEDS: atorvastatin 20mg tablet PO SCH (10:02)
[2021-02-01] MEDS: aspirin 325mg tablet PO SCH (10:02)
[2021-02-01] MEDS: ascorbic acid 500mg tablet PO SCH ×2 (10:03→20:19)
[2021-02-01] MEDS: multivitamins, therapeutics tablet PO SCH (10:03)
[2021-02-01] MEDS: cefazolin/dext.iso 2gm/50ml 50 ML IV SCH ×2 (10:05→16:26)
--- NOTE | 2021-02-01 11:23 | NUR ---
Removed Weller catheter. Patient tolerated well, had no complaints of pain. Tubing was in place when removed. 600cc of yellow urine emptied before catheter removal. Addendum: 02/01/21 at 1124 by Tiana King - Selina BRANDT Amended: Links added.
[2021-02-01 11:36] VITALS: BP 108/45
--- NOTE | 2021-02-01 18:19 | NUR ---
Problems reprioritized. Patient report given, questions answered & plan of care reviewed with Jackie mooney.
--- NOTE | 2021-02-01 18:25 | NUR ---
Patient in room [facility]. I have received report from Patrice KHAN and had the opportunity to ask questions and assume patient care.
[2021-02-01 19:49] VITALS: BP 102/34
[2021-02-01] MEDS: sennosides 8.6mg tablet PO SCH (20:23)
[2021-02-02] VITALS: BP 98/45
[2021-02-02 00:02] VITALS: BP 98/45
[2021-02-02] MEDS: HYDROcodone/acetaminophen 10/325mg tab PO PRN ×2 (05:10→15:08)
--- NOTE | 2021-02-02 06:40 | NUR ---
Reported off to jennifer KHAN
[2021-02-02 07:21] LABS: BASOPHILS % (AUTO) 0.3 % (0-1); EOSINOPHILS # (AUTO) 0.6 X10'3 (0-0.9); EOSINOPHILS % (AUTO) 7.4 % (0-6); HEMATOCRIT 29.6 % (35.0-45.0); HEMOGLOBIN 10.2 g/dl (12.0-16.0); LYMPHOCYTES # (AUTO) 0.9 X10'3 (1.1-4.8); LYMPHOCYTES % (AUTO) 10.5 % (21-51); MEAN CORPUSCULAR HEMOGLOBIN 31.1 PG (27.0-31.0); MEAN CORPUSCULAR HGB CONC 34.3 g/dL (33.0-36.5); MEAN CORPUSCULAR VOLUME 90.8 FL (78-98); MEAN PLATELET VOLUME 8.6 FL (7.4-10.4); MONOCYTES # (AUTO) 0.8 X10'3 (0-0.9); MONOCYTES % (AUTO) 10.5 % (2-12); NEUTROPHILS # (AUTO) 5.8 X10'3 (1.8-7.7); NEUTROPHILS % (AUTO) 71.3 % (42-75); PLATELET COUNT 159 X10'3 (140-440); RED BLOOD COUNT 3.27 X10'6 (4.20-5.60); RED CELL DISTRIBUTION WIDTH 13.4 % (11.5-14.5); WHITE BLOOD COUNT 8.1 X10'3 (4.5-11.0)
[2021-02-02 08:00] VITALS: BP 105/44
[2021-02-02] MEDS: atorvastatin 20mg tablet PO SCH (08:58)
[2021-02-02] MEDS: ascorbic acid 500mg tablet PO SCH ×2 (08:58→20:24)
[2021-02-02] MEDS: multivitamins, therapeutics tablet PO SCH (08:59)
[2021-02-02] MEDS: celeCOXIB 100mg capsule PO SCH ×2 (08:59→20:25)
[2021-02-02] MEDS: aspirin 325mg tablet PO SCH (08:59)
[2021-02-02] MEDS: gabapentin 300mg capsule PO SCH ×3 (08:59→20:24)
[2021-02-02] MEDS: lisinopril 20mg tablet PO SCH (09:00)
[2021-02-02 11:00] VITALS: BP 135/42
--- NOTE | 2021-02-02 18:21 | NUR ---
Gave report to Adelaida KHAN.
[2021-02-02 19:00] VITALS: BP 101/44
[2021-02-02] MEDS: sennosides 8.6mg tablet PO SCH (20:25)
[2021-02-03] VITALS: BP 112/48
[2021-02-03] MEDS: HYDROcodone/acetaminophen 10/325mg tab PO PRN (02:11)
[2021-02-03] MEDS: lisinopril 20mg tablet PO SCH (07:36)
[2021-02-03 08:00] VITALS: BP 110/46
[2021-02-03] MEDS: atorvastatin 20mg tablet PO SCH (08:09)
[2021-02-03] MEDS: multivitamins, therapeutics tablet PO SCH (08:09)
[2021-02-03] MEDS: ascorbic acid 500mg tablet PO SCH (08:10)
[2021-02-03] MEDS: celeCOXIB 100mg capsule PO SCH (08:10)
[2021-02-03] MEDS: aspirin 325mg tablet PO SCH (08:10)
[2021-02-03] MEDS: gabapentin 300mg capsule PO SCH ×2 (08:10→12:50)
[2021-02-03 10:00] VITALS: BP 106/40
[2021-02-03] MEDS ORDERED: traMADol 50MG tablet PO ONE (10:35)
--- NOTE | 2021-02-03 15:24 | NUR ---
PT DISCHARGED IN STABLE CONDITION, LEFT IN [facility] TO [facility]. IV DC CANULA INTACT. REPORT CALLED TO JUANITO KHAN AT [facility]. ALL BELONGINGS IN HAND.
== END 2021-02-03 14:55 | DRG 467 ==
LOC: PAS 06:02 → UNDOADMIN 06:02 → PAS IN 06:02 → EDSTATUS 09:00 → SUR 3N 11:13 → PAS 01-31 06:58 → SUR 3N 01-31 07:00
PROVIDERS: ADMIT Orthopaedic Surgery; ATTEND Orthopaedic Surgery
PROC: 0SR90J9 Replacement of Right Hip Joint with Synthetic Substitute, Cemented, Open Approach (ICD-10-PCS; principal; 2021-01-30 08:31)
PROC: 0SP90JZ Removal of Synthetic Substitute from Right Hip Joint, Open Approach (ICD-10-PCS; 2021-01-31)
PROC: 0SR90J9 Replacement of Right Hip Joint with Synthetic Substitute, Cemented, Open Approach (ICD-10-PCS; 2021-01-31)
DX: M16.11 Unilateral primary osteoarthritis, right hip (principal); T84.020A Dislocation of internal right hip prosthesis, initial encounter; M24.7 Protrusio acetabuli
CPT/HCPCS: 36415; 72170; 80051; 80053; 82948; 85025; 85610; 85730; 86885; 86900; 86901; 87081; 87635; 97110; 97116; 97161; 97530; A7000; C1713; C1776; C9803; G0378; J0171; J0690; J0735; J1170; J1885; J2250; J2405; J2704; J2765; J2795; J3010; J3370; J3480; J3490; J7040; J7120; P9045

== ENCOUNTER 2021-03-25 21:02 | Inpatient (IN) | payer MEDICARE ==
[~2021-03-25] VITALS: Ht 162.6 cm; Wt 75.0 kg
[~2021-03-25 21:02] MED LIST changes: -acetaminophen 325mg tablet PO ONE; -cefazolin/dext.iso 2gm/50ml IV ONE; -celeCOXIB 100mg capsule PO ONE; -famotidine 20mg tablet PO ONE; -gabapentin 300mg capsule PO ONE; -metoclopramide 5 mg/ml inj IV ONE; -oxyCODONE SR 10mg (sust. release) tab -2 tabs (20mg) PO ONE; -ringers solution, lacted 1,000 ML IV SCH; -tranexamic acid inj. 1,000 MG in 0.7% saline 100 ML PMX IV ONE; -vancomycin 1,500 MG in NS 300ml IV soln IV ONE
[2021-03-25 22:47] LABS: BASOPHILS # (AUTO) 0.1 X10'3 (0-0.2); BASOPHILS % (AUTO) 1.3 % (0-1); EOSINOPHILS # (AUTO) 0.4 X10'3 (0-0.9); EOSINOPHILS % (AUTO) 4.6 % (0-6); HEMATOCRIT 35.8 % (35.0-45.0); HEMOGLOBIN 12.1 g/dl (12.0-16.0); LYMPHOCYTES # (AUTO) 1.5 X10'3 (1.1-4.8); LYMPHOCYTES % (AUTO) 18.7 % (21-51); MEAN CORPUSCULAR HEMOGLOBIN 29.3 PG (27.0-31.0); MEAN CORPUSCULAR HGB CONC 33.7 g/dL (33.0-36.5); MEAN CORPUSCULAR VOLUME 86.8 FL (78-98); MEAN PLATELET VOLUME 8.4 FL (7.4-10.4); MONOCYTES # (AUTO) 0.6 X10'3 (0-0.9); MONOCYTES % (AUTO) 7.8 % (2-12); NEUTROPHILS # (AUTO) 5.3 X10'3 (1.8-7.7); NEUTROPHILS % (AUTO) 67.6 % (42-75); PLATELET COUNT 279 X10'3 (140-440); RED BLOOD COUNT 4.12 X10'6 (4.20-5.60); RED CELL DISTRIBUTION WIDTH 14.8 % (11.5-14.5); WHITE BLOOD COUNT 7.9 X10'3 (4.5-11.0)
[2021-03-25 22:57] LABS: D-DIMER 1.93 MG/L FEU (0-0.50)
[2021-03-25 23:02] LABS: ALBUMIN 3.2 G/DL (3.4-5.0); ANION GAP 9 (8-16); BLOOD UREA NITROGEN 14 MG/DL (7-18); BUN/CREATININE RATIO 19.2 (6.6-38.0); CALCIUM 8.7 MG/DL (8.5-10.1); CHLORIDE 103 MMOL/L (99-107); CREATININE 0.73 MG/DL (0.40-0.90); GLUCOSE 94 MG/DL (70-104); POTASSIUM 3.8 MMOL/L (3.5-5.1); SODIUM 134 MMOL/L (135-145); TOTAL CARBON DIOXIDE 22.2 MMOL/L (24-32); eGFR 76 ML/MIN
[2021-03-25] MEDS ORDERED: iohexol 350MG/ML 100ml bottle IV ONE (23:18)
[2021-03-26] MEDS ORDERED: aminophylline 250mg/10ml inj. IV PRN (01:10)
[2021-03-26] MEDS ORDERED: ondansetron/PF 4mg/2ml inj IV PRN (01:10)
[2021-03-26] MEDS ORDERED: metoprolol tartrate 1mg/ml inj IV PRN (01:10)
[2021-03-26] MEDS ORDERED: acetaminophen 325mg tablet PO PRN ×2 (01:10)
[2021-03-26] MEDS ORDERED: potassium CL 10mEq/100ml bag 100 ML IV PRN (01:10)
[2021-03-26] MEDS ORDERED: magnesium 4gm in 100ml NS 100 ML IV PRN (01:10)
[2021-03-26] MEDS ORDERED: normal saline 1000ml 1,000 ML IV SCH (01:10)
[2021-03-26] MEDS ORDERED: nitroGLYCERIN 0.4mg SUBLingual tab SL PRN (01:10)
[2021-03-26] MEDS ORDERED: magnesium 2GM in 50ml NS 50 ML IV PRN (01:10)
[2021-03-26] MEDS ORDERED: regadenoson 0.4mg/5ml syringe IV PRN (01:10)
[2021-03-26] MEDS ORDERED: magnesium Cl slow-release 64mg tablet PO PRN (01:10)
[2021-03-26] MEDS ORDERED: potassium Cl 20 mEq SR tablet PO PRN ×2 (01:10)
[2021-03-26] MEDS ORDERED: K and/or MAG REPLACEMENT MC SCH (08:00)
[2021-03-26] MEDS ORDERED: lisinopril 20mg tablet PO SCH (08:00)
[2021-03-26] MEDS ORDERED: heparin, porcine 5000 units/ml vial SQ SCH (08:00)
--- NOTE | 2021-03-26 09:54 | NUR ---
spoke with lisandro in [facility]. dr hernández cancelled the lexiscan
--- NOTE | 2021-03-26 10:25 | NUR ---
pt continues in sr 69. no acute distress noted at this time
[2021-03-26] MEDS ORDERED: DOCU-345 PO (11:14)
[2021-03-26] MEDS ORDERED: PANT40TA54 PO (11:14)
[2021-03-26] MEDS ORDERED: ASCO100031 PO (11:14)
[2021-03-26] MEDS ORDERED: GABA300C PO (11:14)
[2021-03-26] MEDS ORDERED: CELE100C98 PO (11:14)
[2021-03-26] MEDS ORDERED: ASPI-1 PO (11:29)
[2021-03-26] MEDS ORDERED: DILT30TA34 PO (11:29)
--- NOTE | 2021-03-26 15:34 | NUR ---
DAUGHTER RYLEE GALVAN CALLED. WILL BE COMING TO GET PT.
--- NOTE | 2021-03-26 15:39 | NUR ---
SPOKE WITH DR. WILLOUGHBY. WILL CALL DIRECTOR OF [employer] [facility] AND TELL HER PT'S NEEDS. PT MAY BE DISCHARGED.
[2021-03-26 15:55] VITALS: BP 150/78
--- NOTE | 2021-03-26 15:55 | NUR ---
PT CONTINUES TO STAY IN SR. PT DENIES ANY PAIN OR DISCOMFORT.
== END 2021-03-26 16:08 | disposition home health service (06) | DRG 309 ==
LOC: ER 21:03 → ED HOLD 03-26 01:15
PROVIDERS: ADMIT Internal Medicine; ATTEND Family Medicine
PROC: B32T1ZZ Computerized Tomography (CT Scan) of Left Pulmonary Artery using Low Osmolar Contrast (ICD-10-PCS; principal; 2021-03-25)
PROC: B3201ZZ Computerized Tomography (CT Scan) of Thoracic Aorta using Low Osmolar Contrast (ICD-10-PCS; 2021-03-25)
PROC: B32S1ZZ Computerized Tomography (CT Scan) of Right Pulmonary Artery using Low Osmolar Contrast (ICD-10-PCS; 2021-03-25)
DX: I48.91 Unspecified atrial fibrillation (principal); I24.9 Acute ischemic heart disease, unspecified; E78.00 Pure hypercholesterolemia, unspecified; E78.5 Hyperlipidemia, unspecified; Z66 Do not resuscitate; Z20.822 Contact with and (suspected) exposure to COVID-19; I10 Essential (primary) hypertension; K21.9 Gastro-esophageal reflux disease without esophagitis; K57.90 Diverticulosis of intestine, part unspecified, without perforation or abscess without bleeding; Z88.2 Allergy status to sulfonamides; Z88.5 Allergy status to narcotic agent; Z88.0 Allergy status to penicillin; Z88.8 Allergy status to other drugs, medicaments and biological substances; Z90.49 Acquired absence of other specified parts of digestive tract
CPT/HCPCS: 36415; 71045; 71275; 76536; 80048; 83605; 84439; 84443; 84484; 85025; 85379; 87040; 87186; 87635; 93005; 99285; G0378; J1644; J7030; Q9967

== ENCOUNTER 2021-04-02 12:20 | Emergency (ER) | payer MEDICARE ==
[~2021-04-02] VITALS: Ht 162.6 cm; Wt 75.0 kg
[~2021-04-02 12:20] MED LIST changes: +ASCO100031 PO; +ASPI-1 PO; +CELE100C98 PO; +DILT30TA34 PO; +DOCU-345 PO; +GABA300C PO; -LISI20TA28 PO; +PANT40TA54 PO
[2021-04-02 12:52] LABS: BASOPHILS # (AUTO) 0.1 X10'3 (0-0.2); EOSINOPHILS # (AUTO) 0.3 X10'3 (0-0.9); EOSINOPHILS % (AUTO) 3.9 % (0-6); LYMPHOCYTES % (AUTO) 15.6 % (21-51); MEAN CORPUSCULAR HEMOGLOBIN 28.8 PG (27.0-31.0); MEAN CORPUSCULAR HGB CONC 33.5 g/dL (33.0-36.5); MEAN PLATELET VOLUME 8.2 FL (7.4-10.4); MONOCYTES # (AUTO) 0.5 X10'3 (0-0.9); NEUTROPHILS # (AUTO) 4.8 X10'3 (1.8-7.7); NEUTROPHILS % (AUTO) 72.5 % (42-75); PLATELET COUNT 255 X10'3 (140-440); RED BLOOD COUNT 4.18 X10'6 (4.20-5.60); RED CELL DISTRIBUTION WIDTH 14.8 % (11.5-14.5); WHITE BLOOD COUNT 6.6 X10'3 (4.5-11.0)
[2021-04-02 13:13] LABS: ALANINE AMINOTRANSFERASE 16 U/L (12-78); ALBUMIN 3.1 G/DL (3.4-5.0); ALBUMIN/GLOBULIN RATIO 0.8 (1.1-1.5); ALKALINE PHOSPHATASE 155 IU/L (46-116); ANION GAP 9 (8-16); ASPARTATE AMINO TRANSFERASE 15 U/L (10-37); BILIRUBIN,TOTAL 0.3 MG/DL (0.1-1.0); BLOOD UREA NITROGEN 11 MG/DL (7-18); BUN/CREATININE RATIO 17.2 (6.6-38.0); CALCIUM 8.8 MG/DL (8.5-10.1); CHLORIDE 102 MMOL/L (99-107); CREATININE 0.64 MG/DL (0.40-0.90); GLUCOSE 98 MG/DL (70-104); POTASSIUM 3.9 MMOL/L (3.5-5.1); SODIUM 135 MMOL/L (135-145); TOTAL CARBON DIOXIDE 23.8 MMOL/L (24-32); TOTAL PROTEIN 6.8 G/DL (6.4-8.2); eGFR 88 ML/MIN
[2021-04-02 14:32] LABS: D-DIMER 2.05 MG/L FEU (0-0.50)
[2021-04-02] MEDS ORDERED: iohexol 350MG/ML 100ml bottle IV ONE (15:32)
[2021-04-02 16:48] VITALS: BP 155/108
== END 2021-04-02 16:50 | disposition home or self-care (01) ==
LOC: ER 12:21
DX: R00.2 Palpitations (principal); R55 Syncope and collapse; I48.91 Unspecified atrial fibrillation; E78.00 Pure hypercholesterolemia, unspecified; I10 Essential (primary) hypertension; K21.9 Gastro-esophageal reflux disease without esophagitis; Z87.19 Personal history of other diseases of the digestive system; Z87.440 Personal history of urinary (tract) infections; Z90.49 Acquired absence of other specified parts of digestive tract; Z72.89 Other problems related to lifestyle; Z85.9 Personal history of malignant neoplasm, unspecified; Z88.2 Allergy status to sulfonamides; Z88.0 Allergy status to penicillin; Z88.1 Allergy status to other antibiotic agents; Z88.8 Allergy status to other drugs, medicaments and biological substances; Z79.82 Long term (current) use of aspirin; Z79.2 Long term (current) use of antibiotics; Z79.899 Other long term (current) drug therapy
CPT/HCPCS: 36415; 71045; 80053; 83880; 84443; 84484; 85025; 85379; 93005; 99285; Q9967

== ENCOUNTER 2021-04-09 01:25 | Emergency (ER) | payer MEDICARE ==
[~2021-04-09] VITALS: Ht 162.6 cm; Wt 75.0 kg
[2021-04-09 02:38] LABS: COLOR,URINE YELLOW (Yellow); GLUCOSE, URINE NEGATIVE (Neg); KETONES,URINE NEGATIVE (Neg); LEUKOCYTE ESTERASE ,URINE NEGATIVE (Neg); NITRITES, URINE NEGATIVE (Neg); OCCULT BLOOD,URINE LARGE (Neg); PH,URINE 5.5 (4.8-8.0); PROTEIN,URINE NEGATIVE (Neg); UROBILINOGEN,URINE 0.2 E.U/dL (0.2-1.0)
[2021-04-09 02:44] LABS: UA COLLECTION TYPE CLN CATCH MIDSTREAM
[2021-04-09 03:04] LABS: RBC,URINE 20-50 /HPF (0-2)
[2021-04-09 03:05] LABS: MUCUS STRANDS NONE SEEN /LPF (Neg); SQUAMOUS EPITHELIAL CELL,UR FEW /LPF (FEW)
[2021-04-09] MEDS ORDERED: cephalexin 500mg capsule PO ONE (03:10)
[2021-04-09 03:15] LABS: CLARITY,URINE SLIGHTLY CLOUDY (Clear)
[2021-04-09 03:17] LABS: BACTERIA,URINE NONE SEEN /HPF (Neg)
[2021-04-09 03:59] LABS: ALANINE AMINOTRANSFERASE 20 U/L (12-78); ALBUMIN 3.2 G/DL (3.4-5.0); ALBUMIN/GLOBULIN RATIO 0.8 (1.1-1.5); ALKALINE PHOSPHATASE 163 IU/L (46-116); ANION GAP 8 (8-16); ASPARTATE AMINO TRANSFERASE 20 U/L (10-37); BILIRUBIN,TOTAL 0.4 MG/DL (0.1-1.0); BLOOD UREA NITROGEN 12 MG/DL (7-18); BUN/CREATININE RATIO 21.1 (6.6-38.0); CALCIUM 8.8 MG/DL (8.5-10.1); CHLORIDE 105 MMOL/L (99-107); CREATININE 0.57 MG/DL (0.40-0.90); GLUCOSE 101 MG/DL (70-104); POTASSIUM 3.6 MMOL/L (3.5-5.1); SODIUM 138 MMOL/L (135-145); TOTAL CARBON DIOXIDE 25.3 MMOL/L (24-32); TOTAL PROTEIN 7.2 G/DL (6.4-8.2); eGFR > 90 ML/MIN
[2021-04-09 04:02] LABS: BASOPHILS # (AUTO) 0.1 X10'3 (0-0.2); MEAN CORPUSCULAR HEMOGLOBIN 28.7 PG (27.0-31.0); MEAN CORPUSCULAR HGB CONC 33.3 g/dL (33.0-36.5); MEAN PLATELET VOLUME 8.3 FL (7.4-10.4); MONOCYTES # (AUTO) 0.7 X10'3 (0-0.9)
[2021-04-09 04:04] LABS: BASOPHILS % (AUTO) 0.7 % (0-1); EOSINOPHILS # (AUTO) 0.3 X10'3 (0-0.9); HEMATOCRIT 35.4 % (35.0-45.0); HEMOGLOBIN 11.8 g/dl (12.0-16.0); LYMPHOCYTES % (AUTO) 9.4 % (21-51); MEAN CORPUSCULAR VOLUME 86.2 FL (78-98); MONOCYTES % (AUTO) 6.8 % (2-12); NEUTROPHILS # (AUTO) 8.4 X10'3 (1.8-7.7); NEUTROPHILS % (AUTO) 80.1 % (42-75); PLATELET COUNT 226 X10'3 (140-440); RED BLOOD COUNT 4.11 X10'6 (4.20-5.60); RED CELL DISTRIBUTION WIDTH 14.9 % (11.5-14.5); WHITE BLOOD COUNT 10.5 X10'3 (4.5-11.0)
[2021-04-09 05:00] VITALS: BP 165/79
== END 2021-04-09 06:10 | disposition home or self-care (01) ==
LOC: ER 01:26
DX: R31.9 Hematuria, unspecified (principal); D68.32 Hemorrhagic disorder due to extrinsic circulating anticoagulants; I48.91 Unspecified atrial fibrillation; E78.00 Pure hypercholesterolemia, unspecified; I10 Essential (primary) hypertension; K21.9 Gastro-esophageal reflux disease without esophagitis; G89.29 Other chronic pain; Z87.442 Personal history of urinary calculi; Z87.440 Personal history of urinary (tract) infections; Z79.01 Long term (current) use of anticoagulants; Z72.89 Other problems related to lifestyle; Z85.9 Personal history of malignant neoplasm, unspecified; Z90.49 Acquired absence of other specified parts of digestive tract; Z87.19 Personal history of other diseases of the digestive system; Z88.2 Allergy status to sulfonamides; Z88.0 Allergy status to penicillin; Z88.8 Allergy status to other drugs, medicaments and biological substances; Z91.048 Other nonmedicinal substance allergy status; Z88.1 Allergy status to other antibiotic agents; Z79.82 Long term (current) use of aspirin; Z79.899 Other long term (current) drug therapy
CPT/HCPCS: 80053; 81001; 85025; 87088; 99283

== ENCOUNTER 2021-04-29 23:18 | Inpatient (IN) | payer MEDICARE ==
[~2021-04-29] VITALS: Ht 165.1 cm; Wt 75.0 kg
[~2021-04-29 23:18] MED LIST changes: -ASPI-1 PO
[2021-04-30 00:02] LABS: BASOPHILS # (AUTO) 0.1 X10'3 (0-0.2); BASOPHILS % (AUTO) 0.8 % (0-1); EOSINOPHILS # (AUTO) 0.1 X10'3 (0-0.9); EOSINOPHILS % (AUTO) 1.7 % (0-6); HEMATOCRIT 37.1 % (35.0-45.0); HEMOGLOBIN 12.9 g/dl (12.0-16.0); LYMPHOCYTES # (AUTO) 2.1 X10'3 (1.1-4.8); LYMPHOCYTES % (AUTO) 25.6 % (21-51); MEAN CORPUSCULAR HEMOGLOBIN 28.1 PG (27.0-31.0); MEAN CORPUSCULAR HGB CONC 34.7 g/dL (33.0-36.5); MEAN CORPUSCULAR VOLUME 80.8 FL (78-98); MEAN PLATELET VOLUME 7.9 FL (7.4-10.4); MONOCYTES # (AUTO) 0.7 X10'3 (0-0.9); MONOCYTES % (AUTO) 9.2 % (2-12); NEUTROPHILS # (AUTO) 5.1 X10'3 (1.8-7.7); NEUTROPHILS % (AUTO) 62.7 % (42-75); PLATELET COUNT 291 X10'3 (140-440); RED CELL DISTRIBUTION WIDTH 15.1 % (11.5-14.5); WHITE BLOOD COUNT 8.1 X10'3 (4.5-11.0)
[2021-04-30 00:35] LABS: CLARITY,URINE SLIGHTLY CLOUDY (Clear); COLOR,URINE YELLOW (Yellow); GLUCOSE, URINE NEGATIVE (Neg); KETONES,URINE NEGATIVE (Neg); LEUKOCYTE ESTERASE ,URINE TRACE (Neg); NITRITES, URINE NEGATIVE (Neg); OCCULT BLOOD,URINE LARGE (Neg); PH,URINE 7.5 (4.8-8.0); PROTEIN,URINE TRACE mg/dl (Neg); UROBILINOGEN,URINE 0.2 E.U/dL (0.2-1.0)
[2021-04-30 00:41] LABS: UA COLLECTION TYPE URINAL
[2021-04-30 00:42] LABS: BACTERIA,URINE NONE SEEN /HPF (Neg); RBC,URINE 50-100 /HPF (0-2); SQUAMOUS EPITHELIAL CELL,UR FEW /LPF (FEW); WBC,URINE 0-4 /HPF (0-4)
[2021-04-30 00:52] LABS: ALANINE AMINOTRANSFERASE 18 U/L (12-78); ALBUMIN 3.5 G/DL (3.4-5.0); ALBUMIN/GLOBULIN RATIO 0.9 (1.1-1.5); ALKALINE PHOSPHATASE 180 IU/L (46-116); ANION GAP 10 (8-16); ASPARTATE AMINO TRANSFERASE 16 U/L (10-37); BILIRUBIN,TOTAL 0.4 MG/DL (0.1-1.0); BLOOD UREA NITROGEN 17 MG/DL (7-18); BUN/CREATININE RATIO 26.6 (6.6-38.0); CALCIUM 9.6 MG/DL (8.5-10.1); CHLORIDE 95 MMOL/L (99-107); CREATININE 0.64 MG/DL (0.40-0.90); GLUCOSE 102 MG/DL (70-104); POTASSIUM 3.3 MMOL/L (3.5-5.1); SODIUM 132 MMOL/L (135-145); TOTAL CARBON DIOXIDE 26.6 MMOL/L (24-32); TOTAL PROTEIN 7.3 G/DL (6.4-8.2); eGFR 88 ML/MIN
[2021-04-30 00:54] LABS: LIPASE 86 U/L (73-393)
[2021-04-30] MEDS ORDERED: CHLO25TA10 PO (01:50)
[2021-04-30] MEDS ORDERED: CARCD120C PO (01:50)
[2021-04-30] MEDS ORDERED: RIVA20TA PO (01:50)
[2021-04-30] MEDS ORDERED: magnesium hydroxide 30ml (MOM) UD suspension PO PRN (02:25)
[2021-04-30] MEDS ORDERED: morphine 2 MG/ML inj. syringe IV PRN ×2 (02:25)
[2021-04-30] MEDS ORDERED: PERFLUTREN PROTEIN-A MICROSPHR (Optison) 0.22 MG/ML 3ML VIAL IV PRN (02:25)
[2021-04-30] MEDS ORDERED: acetaminophen 325mg tablet PO PRN (02:25)
[2021-04-30] MEDS ORDERED: mag hydrox/Alum hydrox/simeth 30ml oral suspension PO PRN (02:25)
[2021-04-30] MEDS ORDERED: ondansetron/PF 4mg/2ml inj IV PRN (02:25)
[2021-04-30] MEDS ORDERED: normal saline 1000ml 1,000 ML IV SCH (02:25)
[2021-04-30] MEDS ORDERED: magnesium 2GM in 50ml NS 50 ML IV PRN (05:15)
[2021-04-30] MEDS ORDERED: potassium CL 10mEq/100ml bag 100 ML IV PRN (05:15)
[2021-04-30] MEDS ORDERED: magnesium 4gm in 100ml NS 100 ML IV PRN (05:15)
[2021-04-30 05:36] LABS: MAGNESIUM 1.7 MG/DL (1.5-2.4)
[2021-04-30 06:07] VITALS: BP 132/66
--- NOTE | 2021-04-30 06:54 | NUR ---
Patient in room [facility]. I have received report from CAESAR KHAN and had the opportunity to ask questions and assume patient care.
[2021-04-30 07:00] VITALS: BP 126/59
[2021-04-30] MEDS ORDERED: atorvastatin 20mg tablet PO SCH (08:00)
[2021-04-30] MEDS ORDERED: docusate sod 100mg capsule PO SCH (08:00)
[2021-04-30] MEDS ORDERED: K and/or MAG REPLACEMENT MC SCH (08:00)
[2021-04-30] MEDS ORDERED: diltiazem CD 120mg capsule (once-daily) PO SCH (08:00)
[2021-04-30 11:43] VITALS: BP 152/65
[2021-04-30] MEDS ORDERED: potassium Cl 20 mEq SR tablet PO STA (13:15)
--- NOTE | 2021-04-30 17:41 | NUR ---
PATIENT DISCHARGED HOME AT WITH ALL OF HER BELONGINGS AND VERBAL UNDERSTANDING OF DISCHARGE TEACHING. PATIENT LEFT WITH ALL BELONGINGS, PATIENT IV TAKEN OUT AT DISCHARGE, CANULA WHOLE AND INTACT UPON DISCHARGE AND REQUIRED REDRESSING AND COBAN. PATIENT LEFT IN PRIVATE VEHICLE AT DISCHARGE.
[2021-04-30] MEDS ORDERED: NITR100C PO (23:17)
--- NOTE | 2021-05-01 09:22 | NUR ---
Per Dr Miles please discontinue patients discharge medication of Nitrofurantoin Macrocrystal and Call in new orders for Macrobid 100mg PO BID #[id number] no refills , Rx orders above were called in to Elizabeth the Pharmacist at [facility] on [facility]
== END 2021-04-30 15:30 | disposition home health service (06) | DRG 918 ==
LOC: ER 23:18 → ED HOLD 04-30 02:29 → SUR 3N 04-30 05:45
PROVIDERS: ADMIT Internal Medicine; ATTEND Family Medicine
DX: T45.511A Poisoning by anticoagulants, accidental (unintentional), initial encounter (principal); E87.1 Hypo-osmolality and hyponatremia; K43.9 Ventral hernia without obstruction or gangrene; Z20.822 Contact with and (suspected) exposure to COVID-19; E78.00 Pure hypercholesterolemia, unspecified; E87.6 Hypokalemia; I10 Essential (primary) hypertension; G89.29 Other chronic pain; K21.9 Gastro-esophageal reflux disease without esophagitis; K57.90 Diverticulosis of intestine, part unspecified, without perforation or abscess without bleeding; N20.0 Calculus of kidney; I48.91 Unspecified atrial fibrillation; M16.10 Unilateral primary osteoarthritis, unspecified hip; R31.0 Gross hematuria; Z79.01 Long term (current) use of anticoagulants; Z87.442 Personal history of urinary calculi; Z88.2 Allergy status to sulfonamides; Z88.5 Allergy status to narcotic agent; Z88.0 Allergy status to penicillin; Z88.8 Allergy status to other drugs, medicaments and biological substances; Z87.440 Personal history of urinary (tract) infections; Z79.899 Other long term (current) drug therapy; Y92.89 Other specified places as the place of occurrence of the external cause
CPT/HCPCS: 36415; 71045; 74176; 80053; 81001; 83605; 83690; 83735; 84484; 85025; 86885; 86900; 86901; 87081; 87088; 87635; 93005; 99285; C9803; G0378; J7030

== ENCOUNTER 2021-11-04 12:08 | Emergency (ER) | payer MEDICARE ==
[~2021-11-04] VITALS: Ht 162.6 cm; Wt 76.8 kg
[~2021-11-04 12:08] MED LIST changes: -ASCO100031 PO; +CARCD120C PO; -CELE100C98 PO; +CHLO25TA10 PO; -DILT30TA34 PO; -DOCU-345 PO; -GABA300C PO; +NITR100C PO; -PANT40TA54 PO; +RIVA20TA PO
[2021-11-04 13:27] VITALS: BP 159/69
[2021-11-04 13:56] LABS: BASOPHILS % (AUTO) 0.7 % (0-1); EOSINOPHILS # (AUTO) 0.3 X10'3 (0-0.9); EOSINOPHILS % (AUTO) 5.9 % (0-6); HEMATOCRIT 39.9 % (35.0-45.0); HEMOGLOBIN 13.7 g/dl (12.0-16.0); LYMPHOCYTES # (AUTO) 1.1 X10'3 (1.1-4.8); MEAN CORPUSCULAR HEMOGLOBIN 29.4 PG (27.0-31.0); MEAN CORPUSCULAR HGB CONC 34.3 g/dL (33.0-36.5); MEAN CORPUSCULAR VOLUME 85.6 FL (78-98); MEAN PLATELET VOLUME 8.3 FL (7.4-10.4); MONOCYTES # (AUTO) 0.4 X10'3 (0-0.9); MONOCYTES % (AUTO) 7.6 % (2-12); NEUTROPHILS # (AUTO) 3.5 X10'3 (1.8-7.7); NEUTROPHILS % (AUTO) 64.8 % (42-75); PLATELET COUNT 186 X10'3 (140-440); RED BLOOD COUNT 4.66 X10'6 (4.20-5.60); RED CELL DISTRIBUTION WIDTH 15.6 % (11.5-14.5); WHITE BLOOD COUNT 5.4 X10'3 (4.5-11.0)
[2021-11-04 14:09] LABS: ALANINE AMINOTRANSFERASE 52 U/L (12-78); ALBUMIN 3.5 G/DL (3.4-5.0); ALBUMIN/GLOBULIN RATIO 0.8 (1.1-1.5); ALKALINE PHOSPHATASE 266 IU/L (46-116); ANION GAP 10 (8-16); ASPARTATE AMINO TRANSFERASE 46 U/L (10-37); BILIRUBIN,TOTAL 0.4 MG/DL (0.1-1.0); BLOOD UREA NITROGEN 12 MG/DL (7-18); BUN/CREATININE RATIO 19.4 (6.6-38.0); CHLORIDE 105 MMOL/L (99-107); CREATININE 0.62 MG/DL (0.40-0.90); GLUCOSE 100 MG/DL (70-104); POTASSIUM 3.9 MMOL/L (3.5-5.1); SODIUM 139 MMOL/L (135-145); TOTAL CARBON DIOXIDE 24.2 MMOL/L (24-32); TOTAL PROTEIN 7.7 G/DL (6.4-8.2); eGFR > 90 ML/MIN
--- NOTE | 2021-11-04 16:46 | NUR ---
PT CALLED FOR ROOM, NOT IN LOBBY
== END 2021-11-04 16:48 | disposition left against medical advice (07) ==
LOC: ER 12:09
DX: R51.9 Headache, unspecified (principal); Z53.21 Procedure and treatment not carried out due to patient leaving prior to being seen by health care provider
CPT/HCPCS: 36415; 70450; 71045; 80053; 83880; 84484; 85025; 93005

== ENCOUNTER 2021-11-28 07:22 | Emergency (ER) | payer MEDICARE ==
[~2021-11-28] VITALS: Ht 162.6 cm; Wt 72.7 kg
[2021-11-28 07:25] VITALS: BP 164/78
== END 2021-11-28 09:43 | disposition home or self-care (01) ==
LOC: ER 07:22
DX: Z00.00 Encounter for general adult medical examination without abnormal findings (principal); E78.00 Pure hypercholesterolemia, unspecified; I10 Essential (primary) hypertension; K21.9 Gastro-esophageal reflux disease without esophagitis; G89.29 Other chronic pain; Z88.0 Allergy status to penicillin; Z88.1 Allergy status to other antibiotic agents; Z88.2 Allergy status to sulfonamides; Z88.5 Allergy status to narcotic agent; Z90.49 Acquired absence of other specified parts of digestive tract
CPT/HCPCS: 99284